=== PATIENT | male | born 1970 | race Caucasian/White ===

== ENCOUNTER 2022-12-16 02:11 | Emergency (ER) | payer MEDICAID ==
[~2022-12-16] VITALS: Ht 172.7 cm; Wt 59.3 kg
[2022-12-16 03:37] VITALS: BP_DIAS 111
[2022-12-16] MEDS ORDERED: lisinopril 10 MG tablet PO ONE (03:40)
[2022-12-16] MEDS ORDERED: HYDROcodone/acetaminophen 5mg/325mg tablet PO ONE (03:40)
[2022-12-16] MEDS ORDERED: HYDR-3965 PO (03:40)
[2022-12-16] MEDS ORDERED: LISI20TA28 PO (03:40)
[2022-12-16 03:44] VITALS: BP_SYST 193
--- NOTE | 2022-12-16 12:15 | NUR ---
PATIENT CAME IN TO ER C/O THAT HIS PHARMACY ([facility]) DOES NOT HAVE ENOUGH [place]CO TABLETS TO FILL THE PRESCRIPTION. THIS CHARGE NURSE CALLED TO [facility] [address] ([facility] AND WAS TOLD THAT THIS [facility] HAS ENOUGH TABLETS TO FILL THE PRESCRIPTION. PATIENT WAS GIVEN THE ADDRESS AND TOLD THAT THE PRESCRIPTION CAN BE FILLED TODAY UNTIL 5PM. PATIENT DEPARTED FROM ER, AMBULATORY IN GOOD CONDITION.
== END 2022-12-16 04:00 | disposition home or self-care (01) ==
LOC: ER 02:11
DX: M54.31 Sciatica, right side (principal); I10 Essential (primary) hypertension; E11.9 Type 2 diabetes mellitus without complications; F17.200 Nicotine dependence, unspecified, uncomplicated; F12.90 Cannabis use, unspecified, uncomplicated; Z59.00 Homelessness unspecified; Z56.0 Unemployment, unspecified; Z79.899 Other long term (current) drug therapy
CPT/HCPCS: 99283

== ENCOUNTER 2022-12-18 02:14 | Emergency (ER) | payer MEDICAID ==
[~2022-12-18] VITALS: Ht 172.7 cm; Wt 59.7 kg
[~2022-12-18 02:14] MED LIST: HYDR-3965 PO; LISI20TA28 PO
[2022-12-18 02:24] VITALS: BP 154/107
[2022-12-18] MEDS ORDERED: ibuprofen tablet 400 MG TABLET PO ONE (03:10)
== END 2022-12-18 04:06 | disposition home or self-care (01) ==
LOC: ER 02:15
DX: M25.561 Pain in right knee (principal); I10 Essential (primary) hypertension; E11.9 Type 2 diabetes mellitus without complications; F12.90 Cannabis use, unspecified, uncomplicated; Z91.041 Radiographic dye allergy status; Z56.0 Unemployment, unspecified; Z59.00 Homelessness unspecified
CPT/HCPCS: 29505; 73560; 99284

== ENCOUNTER 2023-01-25 12:44 | Emergency (ER) | payer MEDICAID ==
[~2023-01-25] VITALS: Ht 172.7 cm; Wt 61.8 kg
[2023-01-25 13:02] VITALS: BP 137/87
[2023-01-25] MEDS ORDERED: PERM60CR19 TOP (15:19)
[2023-01-25] MEDS ORDERED: CEPH-585 PO (15:19)
== END 2023-01-25 15:39 | disposition home or self-care (01) ==
LOC: ER 12:45
DX: L03.114 Cellulitis of left upper limb (principal); B86 Scabies; F17.200 Nicotine dependence, unspecified, uncomplicated; I10 Essential (primary) hypertension; E11.9 Type 2 diabetes mellitus without complications; F12.10 Cannabis abuse, uncomplicated; Z59.00 Homelessness unspecified; Z56.0 Unemployment, unspecified; Z88.8 Allergy status to other drugs, medicaments and biological substances
CPT/HCPCS: 99283

== ENCOUNTER 2023-04-04 15:30 | Emergency (ER) | payer MEDICAID ==
[~2023-04-04] VITALS: Ht 172.7 cm; Wt 63.2 kg
[~2023-04-04 15:30] MED LIST changes: +CEPH-585 PO; -HYDR-3965 PO; -LISI20TA28 PO
[2023-04-04 16:28] LABS: BASOPHILS # (AUTO) 0.1 X10'3 (0-0.2); BASOPHILS % (AUTO) 0.8 % (0-1); EOSINOPHILS # (AUTO) 0.1 X10'3 (0-0.9); EOSINOPHILS % (AUTO) 1.4 % (0-6); HEMATOCRIT 42.5 % (42.0-52.0); HEMOGLOBIN 14.2 g/dl (14.0-17.9); LYMPHOCYTES # (AUTO) 1.9 X10'3 (1.1-4.8); LYMPHOCYTES % (AUTO) 21.2 % (21-51); MEAN CORPUSCULAR HEMOGLOBIN 28.3 PG (27.0-31.0); MEAN CORPUSCULAR HGB CONC 33.4 g/dL (33.0-36.5); MEAN CORPUSCULAR VOLUME 84.9 FL (78-98); MEAN PLATELET VOLUME 9.4 FL (7.4-10.4); MONOCYTES # (AUTO) 0.6 X10'3 (0-0.9); MONOCYTES % (AUTO) 7.3 % (2-12); NEUTROPHILS # (AUTO) 6.1 X10'3 (1.8-7.7); NEUTROPHILS % (AUTO) 69.3 % (42-75); PLATELET COUNT 244 X10'3 (140-440); RED CELL DISTRIBUTION WIDTH 14.9 % (11.5-14.5); WHITE BLOOD COUNT 8.7 X10'3 (4.5-11.0)
[2023-04-04 16:30] LABS: CLARITY,URINE CLEAR (Clear); COLOR,URINE YELLOW (Yellow); GLUCOSE, URINE >=1000 mg/dl (Neg); KETONES,URINE NEGATIVE (Neg); LEUKOCYTE ESTERASE ,URINE NEGATIVE (Neg); NITRITES, URINE NEGATIVE (Neg); OCCULT BLOOD,URINE TRACE-INTACT (Neg); PROTEIN,URINE 100 mg/dl (Neg); UROBILINOGEN,URINE 0.2 E.U/dL (0.2-1.0)
[2023-04-04 16:35] LABS: UA COLLECTION TYPE CLN CATCH MIDSTREAM
[2023-04-04 16:40] LABS: APTT 24 SECONDS (22-32)
[2023-04-04 16:40] LABS: BACTERIA,URINE NONE SEEN /HPF (Neg); RBC,URINE 0-2 /HPF (0-2); SQUAMOUS EPITHELIAL CELL,UR NONE SEEN /LPF (FEW); WBC,URINE 0-4 /HPF (0-4)
[2023-04-04 16:46] LABS: ALANINE AMINOTRANSFERASE 29 U/L (12-78); ALBUMIN 2.6 G/DL (3.4-5.0); ALBUMIN/GLOBULIN RATIO 0.8 (1.1-1.5); ALKALINE PHOSPHATASE 108 IU/L (46-116); ANION GAP 7 (8-16); ASPARTATE AMINO TRANSFERASE 11 U/L (10-37); BILIRUBIN,TOTAL 0.3 MG/DL (0.1-1.0); BLOOD UREA NITROGEN 18 MG/DL (7-18); BUN/CREATININE RATIO 9.3 (10.0-20.0); CALCIUM 8.5 MG/DL (8.5-10.1); CHLORIDE 97 MMOL/L (99-107); CREATININE 1.93 MG/DL (0.60-1.10); SODIUM 131 MMOL/L (135-145); TOTAL PROTEIN 5.8 G/DL (6.4-8.2); eGFR 37 ML/MIN
[2023-04-04 16:55] LABS: GLUCOSE 516 MG/DL (70-104)
[2023-04-04] MEDS ORDERED: normal saline 1000ml 1,000 ML IV ONE ×2 (16:55→17:00)
[2023-04-04] MEDS ORDERED: insulin regular, human 10 units/0.1 ml syringe IV ONE (17:00)
[2023-04-04 18:39] LABS: OCCULT BLOOD STOOL NEGATIVE (Neg)
[2023-04-04 19:31] LABS: CLARITY,URINE CLEAR (Clear); COLOR,URINE STRAW (Yellow); GLUCOSE, URINE >=1000 mg/dl (Neg); KETONES,URINE NEGATIVE (Neg); LEUKOCYTE ESTERASE ,URINE NEGATIVE (Neg); NITRITES, URINE NEGATIVE (Neg); OCCULT BLOOD,URINE SMALL (Neg); PROTEIN,URINE 30 mg/dl (Neg); UROBILINOGEN,URINE 0.2 E.U/dL (0.2-1.0)
[2023-04-04 19:33] LABS: UA COLLECTION TYPE CLN CATCH MIDSTREAM
[2023-04-04 19:36] LABS: SQUAMOUS EPITHELIAL CELL,UR FEW /LPF (FEW)
[2023-04-04 19:37] LABS: BACTERIA,URINE NONE SEEN /HPF (Neg); WBC CLUMPS,URINE FEW /HPF (NEGATIVE)
[2023-04-04 19:38] LABS: URINE AMPHETAMINE SCREEN NEGATIVE (Neg); URINE BARBITUATE SCREEN NEGATIVE (Neg); URINE BENZODIAZEPINES SCREEN NEGATIVE (Neg); URINE CANNABINOID SCREEN POSITIVE (Neg); URINE COCAINE SCREEN NEGATIVE (Neg); URINE METHADONE SCREEN NEGATIVE (Neg); URINE OPIATE SCREEN NEGATIVE (Neg); URINE PHENCYCLIDINE SCREEN NEGATIVE (Neg)
[2023-04-04] MEDS ORDERED: CEPH250T PO (20:30)
[2023-04-04 20:35] VITALS: BP 106/64
== END 2023-04-04 20:46 | disposition home or self-care (01) ==
LOC: ER 15:30
DX: K52.89 Other specified noninfective gastroenteritis and colitis (principal); E86.0 Dehydration; E11.65 Type 2 diabetes mellitus with hyperglycemia; I10 Essential (primary) hypertension; F12.90 Cannabis use, unspecified, uncomplicated; Z91.041 Radiographic dye allergy status; Z59.00 Homelessness unspecified; Z56.0 Unemployment, unspecified
CPT/HCPCS: 36415; 71045; 80053; 80305; 80320; 81001; 82272; 82948; 85025; 85610; 85730; 86885; 86900; 86901; 93005; 96361; 96374; 99285; J1815; J7030

== ENCOUNTER 2025-03-17 11:56 | Emergency (ER) | payer MEDICAID ==
[~2025-03-17] VITALS: Ht 172.7 cm; Wt 55.1 kg
--- NOTE | 2025-03-17 12:30 | Physician Documentation ---
History of Present Illness ~ Chief Complaint: Hypoglycemia Stated Complaint: LOW BLOOD SUGAR Time Seen by MD: 12:11 Primary Medical Doctor: Dr. Nesbitt Mode of Arrival: EMS, Stretcher HPI 54-year-old male presenting after he was found down outside. Patient states that he was running some errands when he suddenly felt lightheaded and passed out. He was brought here by EMS who found him down and checked his blood sugar. On scene the patient's blood sugar was 36. The patient reports that he took his insulin is morning but did not eat anything afterwards. Currently states that he feels a little tired but denies any headache, dizziness, chest pain, shortness of breath or any other associated symptoms. The patient is a known type 2 diabetic and is on multiple medications and sees his primary care physician regularly. Medication Reconciliation Allergies: Coded Allergies: iodine (Verified Allergy, Severe, HIVES, THROAT CLOSURE, 03/17/25) Past Medical History Past Medical History: No Pertinent History, Hypertension, Diabetes Past Surgical History: noncontributory Alcohol Use: None Drug Use: marijuana Lives In: Homeless Occupation: unemployed Review of Systems All Other Systems at this time: Reviewed and Negative Physical Exam Vital Signs: Temperature: 98.0, Source: Temporal, Heart Rate: 62, Respiratory Rate: 19, BP: 124/84, Pulse Oximetry: 99, Weight: 55.100 Oxygen Flow Rate: 0 Physical Exam I have reviewed the triage vitals. CONST: Well developed and well nourished. In no acute distress HENT: Head Atraumatic EYES: Pupils are equal, round and reactive to light. Normal conjunctiva NECK: Normal range of motion. Supple. CARDIO: Normal rate and regular rhythm. No murmurs, rubs, or gallops. S1, S2. PULM/CHEST: No respiratory distress. Lungs clear to auscultation. No wheeze ABD: Soft and nontender. Nondistended. Bowel sounds normal. No guarding. : Exam deferred MSK: No edema. No deformity. NEURO: Alert and oriented to person, place and time. Moving all extremities SKIN: Warm and dry. PSYCH: Normal mood and affect. Good eye contact. Progress Results/Orders Results/Orders Orders - SHONDA PULIDO MD Electrocardiogram (03/17/25 ) Chest,Single View (03/17/25 13:11) Completed Orders - SHONDA PULIDO MD Cbc/Diff (03/17/25 12:10) CMP (03/17/25 12:10) Dextrose 50%-Water (Dextrose 50%-Water S (03/17/25 13:10) Potassium Cl Sr Tablet (K-Dur Tablet) (03/17/25 13:10) Normal Saline 1000ml (Sodium Chloride 10 (03/17/25 13:10) Chest,Single View (03/17/25 13:11) Medications Received in ER Medications (Trade) Dose Ordered Sig/Chucky Route PRN Reason Start Time Stop Time Status Last Admin Dose Admin (dextrose 50%-water syringe) 50 ml ONCE ONCE IV 03/17/25 13:10 03/17/25 13:11 DC 03/17/25 13:10 50 ML (K-DUR tablet) 20 meq ONCE STAT PO 03/17/25 13:10 03/17/25 13:19 DC 03/17/25 13:29 20 MEQ Sodium Chloride 1,000 ml @ 1,000 mls/hr ONCE ONCE IV 03/17/25 13:10 03/17/25 14:09 DC 03/17/25 13:29 1,000 MLS/HR Vital Signs 03/17/25 03/17/25 03/17/25 03/17/25 12:00 12:18 13:07 14:32 Temp 98.0 98.0 98.0 Pulse 62 66 81 Resp 12 19 14 18 B/P (MAP) 124/84 111/61 (78) 93/55 (68) Pulse Ox 99 98 98 O2 Flow Rate 0 0 0 Laboratory Tests Test 03/17/25 12:05 03/17/25 12:29 03/17/25 13:04 03/17/25 13:37 Glucometer 133 H 63 L 209 H White Blood Count 12.4 H Red Blood Count 5.00 Hemoglobin 13.8 L Hematocrit 43.0 Mean Corpuscular Volume 86.1 Mean Corpuscular Hemoglobin 27.7 Mean Corpuscular Hemoglobin Concent 32.2 L Red Cell Distribution Width 16.3 H Platelet Count 300 Mean Platelet Volume 8.1 Neutrophils (%) (Auto) 68.2 Lymphocytes (%) (Auto) 21.5 Monocytes (%) (Auto) 8.5 Eosinophils (%) (Auto) 1.2 Basophils (%) (Auto) 0.6 Neutrophils # (Auto) 8.5 H Lymphocytes # (Auto) 2.7 Monocytes # (Auto) 1.1 H Eosinophils # (Auto) 0.2 Basophils # (Auto) 0.1 CBC Comment Sodium Level 133 L Potassium Level 3.3 L Chloride Level 95 L Carbon Dioxide Level 27.8 Anion Gap 10 Blood Urea Nitrogen 41 H Creatinine 1.41 H Estimated GFR/1.73 m2 52 BUN/Creatinine Ratio 29.1 H Glucose Level 104 Calcium Level 9.4 Total Bilirubin 0.5 Aspartate Amino Transf (AST/SGOT) 23 Alanine Aminotransferase (ALT/SGPT) 33 Alkaline Phosphatase 129 H Total Protein 8.7 H Albumin 4.0 Globulin 4.7 H Albumin/Globulin Ratio 0.9 L Chemistry Comments Test 03/17/25 15:08 Glucometer 161 H Medical Decision Making Additional Comment 54-year-old male presenting with hypoglycemia. Upon presentation his blood sugar had improved and he was given a meal. In the field he was hypoglycemic down to 36-38. After eating his blood glucose improved to greater than 100 but then dip once again. He was given dextrose 50 % which subsequently again i ncreased his blood glucose to the greater than 200. He was monitored for several hours in the emergency department. On recheck he was about 161. Patient remained asymptomatic during this time. His vitals remained normal as well. Departure Disposition: 01 HOME / SELF CARE / HOMELESS Impression: Primary Impression: Hypoglycemia Condition: Improved Discharge Instructions: Hypoglycemia, [id number] Referrals: NO PRIMARY CARE PROVIDER (PCP) Comments Ensure that you eat with her meals regularly especially after he take her insulin. Please continue with the medication as prescribed. Continue to monitor your blood sugar regularly. Follow up closely with her primary care physician in the next 2-3 days. Return to the ED with any acutely worsening symptoms. SHONDA PULIDO MD Mar 17, 2025 12:30
[2025-03-17 12:56] LABS: BASOPHILS # (AUTO) 0.1 X10'3 (0-0.2); BASOPHILS % (AUTO) 0.6 % (0-1); EOSINOPHILS # (AUTO) 0.2 X10'3 (0-0.9); EOSINOPHILS % (AUTO) 1.2 % (0-6); HEMOGLOBIN 13.8 g/dl (14.0-17.9); LYMPHOCYTES # (AUTO) 2.7 X10'3 (1.1-4.8); LYMPHOCYTES % (AUTO) 21.5 % (21-51); MEAN CORPUSCULAR HEMOGLOBIN 27.7 PG (27.0-31.0); MEAN CORPUSCULAR HGB CONC 32.2 g/dL (33.0-36.5); MEAN CORPUSCULAR VOLUME 86.1 FL (78-98); MEAN PLATELET VOLUME 8.1 FL (7.4-10.4); MONOCYTES # (AUTO) 1.1 X10'3 (0-0.9); MONOCYTES % (AUTO) 8.5 % (2-12); NEUTROPHILS # (AUTO) 8.5 X10'3 (1.8-7.7); NEUTROPHILS % (AUTO) 68.2 % (42-75); PLATELET COUNT 300 X10'3 (140-440); RED CELL DISTRIBUTION WIDTH 16.3 % (11.5-14.5); WHITE BLOOD COUNT 12.4 X10'3 (4.5-11.0)
[2025-03-17 13:08] LABS: ALANINE AMINOTRANSFERASE 33 U/L (12-78); ALBUMIN/GLOBULIN RATIO 0.9 (1.1-1.5); ALKALINE PHOSPHATASE 129 IU/L (46-116); ANION GAP 10 (8-16); ASPARTATE AMINO TRANSFERASE 23 U/L (10-37); BILIRUBIN,TOTAL 0.5 MG/DL (0.1-1.0); BLOOD UREA NITROGEN 41 MG/DL (7-18); BUN/CREATININE RATIO 29.1 (10.0-20.0); CALCIUM 9.4 MG/DL (8.5-10.1); CHLORIDE 95 MMOL/L (99-107); CREATININE 1.41 MG/DL (0.60-1.10); GLUCOSE 104 MG/DL (70-104); POTASSIUM 3.3 MMOL/L (3.5-5.1); SODIUM 133 MMOL/L (135-145); TOTAL CARBON DIOXIDE 27.8 MMOL/L (24-32); TOTAL PROTEIN 8.7 G/DL (6.4-8.2); eCRCL 47 ML/MIN; eGFR 52 ML/MIN
[2025-03-17] MEDS: dextrose 50%-water 50ml dispensing syringe IV ONE (13:10)
[2025-03-17] MEDS: potassium Cl 20 mEq SR tablet PO STA (13:29)
[2025-03-17] MEDS: normal saline 1000ml 1,000 ML IV ONE (13:29)
--- NOTE | 2025-03-17 15:08 | RADIOLOGY REPORT ---
CHEST RADIOGRAPH Indication: syncope Technique: Single frontal view of the chest was obtained Comparison: CHEST,SINGLE VIEW on DOS: 04/04/23, CHEST,SINGLE VIEW on DOS: 12/31/22 FINDINGS: Lines and Tubes: None Lungs: No focal consolidation. Pleura: No effusion. No pneumothorax. Cardiomediastinal contours: Unremarkable Bones: No acute osseous abnormality. IMPRESSION: No acute cardiopulmonary disease.
[2025-03-17 16:36] VITALS: BP 109/64; PULSE 78; RESP 18; TEMP 98; O2SAT 100
== END 2025-03-17 16:38 | disposition home or self-care (01) ==
LOC: ER 11:56
DX: E11.649 Type 2 diabetes mellitus with hypoglycemia without coma (principal); Z91.041 Radiographic dye allergy status
CPT/HCPCS: 36415; 71045; 80053; 82948; 85025; 96361; 96374; 99284; J3490; J7030